=== PATIENT | female | born 1935 | race Caucasian/White ===

== ENCOUNTER → 2025-02-01 | Outpatient (CLI) | payer MEDICARE, BC, SELFPAY ==
--- NOTE | 2025-02-01 10:00 | XR_ITS ---
Examination: CT abdomen with intravenous contrast CT pelvis with intravenous contrast 2-D coronal reconstructions 2-D sagittal reconstructions Date and time of exam:February 01, 2025 1041 hours Comparison May 05, 2011. CTDI: vol (mGy) 4.57 DLP: (mGycm) 197 Technique: Multiple axial sections of the abdomen and pelvis have been obtained. 64 slice high-resolution scanner used. 3 mm axial sections have been obtained, post intravenous injection 60 cc [id number] 2-D sagittal, coronal reconstructions obtained. Low dose protocols were performed. One or more of the following dose reduction techniques were used; automated exposure control, adjustment of the mA and/or KV according to patient size, use of iterative reconstruction technique. Findings: Partial visualization right hilar lymphadenopathy Numerous metastatic pulmonary nodules in the lower lung zones, the largest 14 mm Soft tissue tumor mass destroying left lower ribs left hemithorax, 3 cm mediolateral dimension 7 cm AP dimension Small to moderate bilateral pleural effusions Liver irregular in contour, cirrhosis pattern Spleen not enlarged No pancreatic mass Heavy abdominal aortic calcification No hydronephrosis No bowel obstruction No abdominal lymphadenopathy No pericecal inflammatory change No diverticulitis Urinary bladder intact Severe osteopenia Sclerotic T12 posterior L1 vertebral bodies Chronic osteoporotic compressions L2-L5 IMPRESSION: Partial visualization right hilar lymphadenopathy Numerous metastatic pulmonary nodules in the lower lung zones 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 Consider whole body bone scan and CT scan chest post contrast follow-up for staging
--- NOTE | 2025-02-01 10:30 | XR_ITS ---
Examination: Abdomen sonogram, Limited Date and time of exam: February 01, 2025 1048 hours INDICATIONS: Upper abdominal and chest pain beginning several months ago Technique: Real-time mace scale transabdominal sonographic images of the upper abdomen obtained. Findings: Normal gallbladder Normal common bile duct 0.2 cm Pancreatic head 1.5 cm Liver 13 cm no focal liver lesions Normal hepatopedal portal venous flow Patent IVC IMPRESSION: Normal gallbladder Normal common bile duct
== END | disposition home or self-care (01) ==
PROVIDERS: Referring Provider Specialist; Visit Provider Specialist
DX: R59.0 Localized enlarged lymph nodes (principal); R91.8 Other nonspecific abnormal finding of lung field; K76.89 Other specified diseases of liver; C78.02 Secondary malignant neoplasm of left lung; C79.51 Secondary malignant neoplasm of bone
CPT/HCPCS: 74177; 76705; A4649; Q9967